=== PATIENT | male | born 1975 | race Caucasian/White ===

== ENCOUNTER 2020-12-02 01:52 | Inpatient (IN) | payer OTHER, MEDICAID ==
[~2020-12-02] VITALS: Ht 188 cm; Wt 124.0 kg
[2020-12-02] MEDS ORDERED: PRILOSEC OTC20 MG PO (02:13)
[2020-12-02] MEDS ORDERED: CELEXA20 MG PO (02:13)
[2020-12-02] MEDS ORDERED: DEPO-TESTO100 MG/1 M IM (02:14)
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
[2020-12-02] MEDS ORDERED: SILDENAFIL20 MG PO (16:38)
[2020-12-02] MEDS ORDERED: ZINC50 MG PO (18:10)
--- NOTE | 2020-12-03 09:00 | EKG ---
[facility] [place] [facility] [address] [facility] [place] [address] Signed Normal sinus rhythm Minimal voltage criteria for LVH, may be normal variant Borderline ECG No previous ECGs available Confirmed by VELMA MCMAHAN MD ([id number]) on 12/03/2020 9:00:43 AM Electronically Signed By: VELMA MCMAHAN MD 12/03/20 0900 PATIENT NAME: SYEDA MONK TERRELLJOSE Electrocardiogram DATE OF : 75 PHYSICIAN: VELMA MCMAHAN MD REPORT #: [id number] REPORT IS CONFIDENTIAL AND NOT TO BE RELEASED WITHOUT AUTHORIZATION
[2020-12-06] MEDS ORDERED: HYDROCODON-ACE1 EAC8 PO (07:46)
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
== END 2020-12-06 10:50 | disposition home or self-care (01) | DRG 816 ==
LOC: ED 01:52 → MS 10:13 → CCU 10:13 → MS 12-04 11:00
PROVIDERS: ADMIT Colon & Rectal Surgery; ATTEND Colon & Rectal Surgery
DX: S36.032A Major laceration of spleen, initial encounter (principal); K21.9 Gastro-esophageal reflux disease without esophagitis; Z20.822 Contact with and (suspected) exposure to COVID-19; F41.9 Anxiety disorder, unspecified; S62.317A Displaced fracture of base of fifth metacarpal bone, left hand, initial encounter for closed fracture; I48.91 Unspecified atrial fibrillation; F32.9 Major depressive disorder, single episode, unspecified; Z88.0 Allergy status to penicillin; Z95.5 Presence of coronary angioplasty implant and graft; Z79.899 Other long term (current) drug therapy; V00.831A Fall from motorized mobility scooter, initial encounter
CPT/HCPCS: 70450; 71045; 71260; 72125; 73130; 74177; 80048; 80053; 81001; 83690; 83735; 84100; 85025; 86850; 86900; 86901; 86922; 90648; 90732; 90734; 93005; 93010; 94760; 96375; 96376; 99285-25; C9113; C9803; G0009; J0610; J1170; J2270; J2405; J3010; J7030; J7121; Q9967; U0003